=== PATIENT | female | born 1945 | race Two or more races ===

== ENCOUNTER 2024-01-11 01:08 | Emergency (ER) | payer MEDICAID, MEDICARE ==
[~2024-01-11] VITALS: Ht 160 cm; Wt 90.9 kg
[2024-01-11 01:47] VITALS: BP 149/72; PULSE 71; RESP 18; TEMP 97.9
[2024-01-11] MEDS: BUPIVACAINE HCL/PF 0.5% 10 ML VIAL IARTIC ONE (02:28)
[2024-01-11] MEDS: LIDOCAINE 1% 10 ML VIAL IARTIC ONE (02:28)
[2024-01-11] MEDS: SODIUM CHLORIDE 0.9% 1,000 ML IV ONE (02:37)
[2024-01-11] MEDS: HYDROmorphone HCL 2 MG/ML SYRINGE IVP ONE (02:46)
[2024-01-11] MEDS ORDERED: TRAM50TA5 PO (03:41)
== END 2024-01-11 03:46 | disposition home or self-care (01) ==
LOC: EMS 01:11
DX: S43.005A Unspecified dislocation of left shoulder joint, initial encounter (principal); I10 Essential (primary) hypertension; W06.XXXA Fall from bed, initial encounter; Y93.89 Activity, other specified; Y92.89 Other specified places as the place of occurrence of the external cause; Y99.8 Other external cause status
CPT/HCPCS: 99284; 23650; 96374; 96361; 73030; J3490 ×2; J1170